=== PATIENT | male | born 2005 | race Two or more races ===

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

== ENCOUNTER → 2025-07-11 | Outpatient (CLI) | payer MEDICAID, SELFPAY ==
--- NOTE | 2025-07-11 15:55 | XR_ITS ---
EXAMINATION: Sinus series 3 views TECHNIQUE: Zeyad Tuttle lateral sinus series 3 views Date and time: July 11, 2025, 1606 hours INDICATIONS: Sinus pressure and headaches beginning 2 years ago. FINDINGS: Opacity in the frontal ethmoid air cells as well as maxillary antra and sphenoid air cells No retention cyst No fluid levels No cortical bone destruction or significant nasal deviation Prominent hypertrophy inferior nasal turbinates and left middle turbinate IMPRESSION: Chronic pansinusitis
== END | disposition home or self-care (01) ==
LOC: CDIM 15:43
PROVIDERS: PCP Nurse Practitioner Family; Referring Provider Nurse Practitioner Family; Visit Provider Nurse Practitioner Family
DX: J32.4 Chronic pansinusitis (principal)
CPT/HCPCS: 70220